=== PATIENT | male | born 2000 | race Caucasian/White ===

== ENCOUNTER 2021-09-01 21:08 | Emergency (ER) | payer BC ==
[2021-09-02 11:33] LABS: SARS-CoV-2 PCR by NAA Not Detected (NotDetected)
== END 2021-09-01 22:10 | disposition home or self-care (01) ==
LOC: ERS 21:08
DX: J02.9 Acute pharyngitis, unspecified (principal); R05.9 Cough, unspecified; R52 Pain, unspecified; Z20.822 Contact with and (suspected) exposure to COVID-19
CPT/HCPCS: 99283; U0003; U0005